=== PATIENT | male | born 1990 | race Caucasian/White ===

== ENCOUNTER 2024-04-23 11:50 | Emergency (ER) | payer OTHER, MEDICAID ==
[~2024-04-23] VITALS: Ht 182.9 cm; Wt 102.1 kg
[2024-04-23 12:35] VITALS: BP_SYST 132; PULSE 93; RESP 18; TEMP 98; O2SAT 98
[2024-04-23] MEDS ORDERED: NAPR-688 PO (14:08)
[2024-04-23] MEDS ORDERED: TRAM50TA2 PO (14:08)
[2024-04-23 14:15] VITALS: BP_SYST 127; PULSE 76; RESP 18; TEMP 98.1; O2SAT 98
== END 2024-04-23 14:14 | disposition home or self-care (01) ==
LOC: SED 11:50
DX: S43.491A Other sprain of right shoulder joint, initial encounter (principal); S80.11XA Contusion of right lower leg, initial encounter; Z79.899 Other long term (current) drug therapy; Z79.2 Long term (current) use of antibiotics; V89.2XXA Person injured in unspecified motor-vehicle accident, traffic, initial encounter; Y93.89 Activity, other specified; Y92.89 Other specified places as the place of occurrence of the external cause; Y99.8 Other external cause status
CPT/HCPCS: 73030; 73590; 99284